=== PATIENT | male | born 1995 | race Caucasian/White ===

== ENCOUNTER 2016-07-01 01:29 | Emergency (ER) | payer OTHER ==
[~2016-07-01] VITALS: Ht 172.7 cm; Wt 81.5 kg
[2016-07-01 01:38] VITALS: TEMP 37; Ht 172.7 cm; Wt 81.5 kg
[2016-07-01] MEDS ORDERED: CEPHALEXIN MONOHYDRATE 250 MG CAP PO ONE (02:30)
[2016-07-01] MEDS ORDERED: XYLOCAINE 1%/SOD BICARB 20 ML VIAL INFIL ONE (02:30)
[2016-07-01] MEDS ORDERED: CEPHALEXIN 500MG HOME PACK 1 EA BTL PO ONE (02:30)
[2016-07-01] MEDS ORDERED: CEPH500C PO (05:12)
--- NOTE | 2016-07-01 05:13 | EMERGENCY ROOM VISIT NOTE ---
ED Visit Note First contact with patient: 02:02 Chief Complaint: LEFT Elbow Laceration History of Present Illness: Patient is a 20-year-old male who presents to the emergency Department this morning for evaluation of a laceration to the LEFT elbow. He initially reports that he bumped into somebody on the dance floor resulting in a wound dehiscence to the LEFT elbow. After further questioning, the patient reports that he was intoxicated and attempted to jump a fence and cut his elbow on the top of the fence. He reports a moderate amount of bleeding initially. He denies any numbness or tingling into the distal extremity. He rates his current discomfort as a 4/10. He denies any falls or head injuries otherwise. The patient's tetanus status is up-to-date. The patient denies any associated neck pain, shoulder pain, elbow pain, wrist pain, or forearm pain. Medications: No current medications. Allergies: No medication allergies. PMH: No pertinent past medical history. SHx: Patient is a 20-year-old [employer] student who lives with roommates. ROS: All pertinent positive and negative review of systems are appropriately documented in the History of Present Illness. Physical Exam: VITAL SIGNS - Vital signs and nursing notes were reviewed. GENERAL - 20-year-old male appearing his stated age who is in no acute distress. Communicates well with provider and answers questions appropriately. SKIN - There is a 4.0 cm long laceration noted to the medial surface of the mid upper arm. The edges gape apart with traction. No foreign bodies appreciated. Upon further examination there are no deep structures including vessel, tendon, or bony structures appreciated. There is no active bleeding noted. MUSCULOSKELETAL -full range of motion of the LEFT upper extremity with +5/5 audit spec strength appreciated bilaterally. NEUROLOGIC - Spinothalamic tract was found to be intact with ability to discriminate sharp versus dull sensation. No sensory defects of the dorsal column were appreciated utilizing light touch for evaluation. VASCULAR - Capillary refill was brisk. ED Course: Patient was seen and evaluated by myself. Costs and benefits of performing primary wound closure versus no repair were discussed with the patient who verbalizes understanding. Verbal consent was obtained prior to performing the procedure. 4.0 cc of 1% buffered lidocaine was used to anesthetize the LEFT upper arm laceration. The wound was cleansed and prepped in the typical sterile fashion utilizing normal saline and Betadine. The wound was sterilely draped. Once proper anesthetization was established, the wound was further examined and demonstrated a full-thickness laceration. No deep structures were appreciated.. The wound was copiously irrigated with normal saline and Betadine. The wound was closed using 3 simple interrupted 4-0 Vicryl subcuticular sutures and 8 simple, 4-0 nylon sutures with the wound edges being well approximated. Patient tolerated the procedure well. No complications were met. The wound was cleansed and dressed with a Bacitracin dressing. Patient was provided initial dose of Keflex. He is placed on Keflex prophylactically for the next few days. Patient educated on worrisome symptoms for return visit to the Emergency Department. Patient discharged to home in good condition. Impression: LEFT Upper Arm Laceration Discharge Instructions: You have received 8 sutures on your LEFT Upper Arm. These sutures are NOT dissolvable and WILL need to be removed by a health care provider in 10-12 days. You can return to the Emergency Department or contact your Primary Care Provider to have the sutures removed. Proper wound care is essential for adequate wound healing and infection prevention. You can shower and clean the wound with soap and water. Do not scour over the wound, pat dry with a towel. Do not submerse the wound (i.e. bathe or dish wash) until the sutures have been removed. You can use an antibiotic ointment with a dressing over the wound for the next 3-4 days. After this time you may leave the wound dry and open to the air. If crust develops over the wound you can use a Q-tip to apply a 1:1 peroxide:water solution to clean the wound. Look for signs of infection of the wound including: increased pain, swelling, foul discharge, streaking, or increased temperature. If any of these are noticed you should return to the Emergency Department for further assessment and treatment. As with any laceration you may have received nerve damage to the surrounding tissues. This damage may or may not be permanent. You should keep the area covered with sunscreen for the first 6 months to 1 year when at risk for exposure to help minimize scarring. You can also use scar reducing creams or Vitamin E oil to help minimize scarring. You were prescribed Keflex to be taken as prescribed. This is an antibiotic. All antibiotics have the potential to cause diarrhea. Stop this medication and contact a medical provider if you were to develop any significant adverse side effects including: wheezing, shortness of breath, passing out, vomiting, or a diffuse rash. Always take antibiotics as directed and COMPLETE the ENTIRE course regardless of the improvement of your symptoms. For pain control, you can use the following apuu-ydu-jywvdyz medicines (if >12 yo): - Regular strength (325mg/tab) Tylenol (acetaminophen) 2 tabs every 4-6 hours as needed. Do not exceed 12 tablets in a 24 hour period. Avoid taking more than 4 grams (4000 mg) of Tylenol per day. This includes any other sources of acetaminophen you may take on a regular basis. - Regular strength (200 mg/tab) Advil (ibuprofen) 1-2 tabs every 4-6 hours as needed. Do not exceed a dose of 3200 mg per day. Return to the emergency department if your symptoms worsen despite treatment course outlined above. Current/Historical Medications Scheduled Cephalexin Monohydrate (Keflex), 500 MG PO QID Allergies Coded Allergies: Dog Dander (Verified Allergy, Mild, NASAL CONGESTION, 07/01/16) Vital Signs Date Time Temp Pulse Resp B/P Pulse Ox O2 Delivery O2 Flow Rate FiO2 07/01/16 05:17 90 18 134/82 96 Room Air 07/01/16 01:38 37.0 96 18 147/75 97 Room Air Medications Administered Medications (Trade) Dose Ordered Sig/Milana Route Start Time Stop Time Status Last Admin Dose Admin Cephalexin Monohydrate (Keflex Cap) 500 mg NOW ONCE PO 07/01/16 02:30 07/01/16 02:31 DC 07/01/16 02:30 500 MG Cephalexin Monohydrate (Keflex 500MG Home Pack) 1 homepack NOW ONCE PO 07/01/16 02:30 07/01/16 02:31 DC 07/01/16 02:30 1 HOMEPACK Departure Information Impression Primary Impression: Laceration of upper arm Dispostion Home / Self-Care Condition GOOD Prescriptions Cephalexin Monohydrate (Keflex) 500 Mg Cap 500 MG PO QID for 5 Days, #20 CAP Prov: Mj Morgan, KATIANA 07/01/16 Referrals No Doctor, Assigned (PCP) Patient Instructions ED Laceration Ext Sutr Stap Tape, [facility] [employer] Additional Instructions You have received 8 sutures on your LEFT Upper Arm. These sutures are NOT dissolvable and WILL need to be removed by a health care provider in [] days. You can return to the Emergency Department or contact your Primary Care Provider to have the sutures removed. Proper wound care is essential for adequate wound healing and infection prevention. You can shower and clean the wound with soap and water. Do not scour over the wound, pat dry with a towel. Do not submerse the wound (i.e. bathe or dish wash) until the sutures have been removed. You can use an antibiotic ointment with a dressing over the wound for the next 3-4 days. After this time you may leave the wound dry and open to the air. If crust develops over the wound you can use a Q-tip to apply a 1:1 peroxide:water solution to clean the wound. Look for signs of infection of the wound including: increased pain, swelling, foul discharge, streaking, or increased temperature. If any of these are noticed you should return to the Emergency Department for further assessment and treatment. As with any laceration you may have received nerve damage to the surrounding tissues. This damage may or may not be permanent. You should keep the area covered with sunscreen for the first 6 months to 1 year when at risk for exposure to help minimize scarring. You can also use scar reducing creams or Vitamin E oil to help minimize scarring. You were prescribed Keflex to be taken as prescribed. This is an antibiotic. All antibiotics have the potential to cause diarrhea. Stop this medication and contact a medical provider if you were to develop any significant adverse side effects including: wheezing, shortness of breath, passing out, vomiting, or a diffuse rash. Always take antibiotics as directed and COMPLETE the ENTIRE course regardless of the improvement of your symptoms. For pain control, you can use the following bhhc-kxh-vszuzmq medicines (if >12 yo): - Regular strength (325mg/tab) Tylenol (acetaminophen) 2 tabs every 4-6 hours as needed. Do not exceed 12 tablets in a 24 hour period. Avoid taking more than 4 grams (4000 mg) of Tylenol per day. This includes any other sources of acetaminophen you may take on a regular basis. - Regular strength (200 mg/tab) Advil (ibuprofen) 1-2 tabs every 4-6 hours as needed. Do not exceed a dose of 3200 mg per day. Return to the emergency department if your symptoms worsen despite treatment course outlined above. Problem Qualifiers Primary Impression: Laceration of upper arm Encounter type: initial encounter Laterality: left Qualified Codes: S41.112A - Laceration without foreign body of left upper arm, initial encounter
[2016-07-01 05:17] VITALS: BP 134/82; PULSE 90; O2SAT 96
== END 2016-07-01 05:24 | disposition home or self-care (01) ==
LOC: C.EDB 01:31 → C.EDA 05:24
DX: S41.112A Laceration without foreign body of left upper arm, initial encounter (principal); W26.8XXA Contact with other sharp object(s), not elsewhere classified, initial encounter